=== PATIENT | female | born 1985 | race Caucasian/White ===

== ENCOUNTER 2019-10-01 20:34 | Emergency (ER) | payer SELFPAY ==
[~2019-10-01] VITALS: Ht 167.6 cm; Wt 80.0 kg
[2019-10-01] MEDS ORDERED: IPRATROPIUM BROMIDE (0.02%) 0.5MG/2.5ML NEB HHN STA (20:47)
[2019-10-01] MEDS ORDERED: ALBUTEROL (0.083%) 2.5MG/3ML NEB HHN STA (20:47)
[2019-10-01] MEDS ORDERED: METHYLPREDNISOLONE SOD SUCC 125 MG/2 ML VIAL IV STA (20:47)
[2019-10-01] MEDS ORDERED: MAGNESIUM 2 G PREMIX 50 ML IV ONE (21:00)
[2019-10-01 21:07] LABS: BASOPHILS % 2.1 % (0.0-2.0); EOSINOPHILS % 1.8 % (0.0-5.0); HEMATOCRIT. 34.4 % (36.0-48.0); HEMOGLOBIN. 11.2 g/dL (12.0-16.0); LYMPHOCYTES % 41.2 % (20.0-50.0); MEAN CORPUSCULAR HEMOGLOBIN 28.7 pg (28.0-32.0); MEAN PLATELET VOLUME 7.4 fl (7.4-10.4); MONOCYTES % 14.3 % (2.0-8.0); NEUTROPHILS % 40.6 % (40.0-76.0); PLATELET 286 x1000/uL (130-400); RED BLOOD CELL COUNT 3.91 mill/uL (4.2-5.4); RED CELL DISTRIBUTION WIDTH 17.1 % (11.6-14.6)
[2019-10-01 21:11] LABS: CHLORIDE 107 mEq/L (98-107)
[2019-10-02] MEDS ORDERED: HYDROCODONE/ACETAMINOPHEN 5/325MG TABLET PO PRN (03:30)
[2019-10-02] MEDS ORDERED: ENOXAPARIN 40MG/0.4ML SYR SUBCUT SCH (03:30)
[2019-10-02] MEDS ORDERED: METHYLPREDNISOLONE SOD SUCC 125 MG/2 ML VIAL IV SCH (03:30)
[2019-10-02] MEDS ORDERED: GUAIFENESIN 200MG/10ML SUGAR FREE UDC PO PRN (03:30)
[2019-10-02] MEDS ORDERED: IPRATROPIUM/ALBUTEROL 0.5-3(2.5)MG/3ML NEB NEB PRN (03:30)
[2019-10-02] MEDS ORDERED: LEVOFLOXACIN 500MG PREMIX 100 ML IV SCH (03:30)
[2019-10-02] MEDS ORDERED: MAGNESIUM/ALUMINUM HYDROXIDE/SIMETHICONE 30ML UDC PO PRN (03:30)
[2019-10-02] MEDS ORDERED: ACETAMINOPHEN 325MG TABLET PO PRN (03:30)
[2019-10-02] MEDS ORDERED: CLONIDINE 0.1MG TABLET PO PRN (03:30)
[2019-10-02] MEDS ORDERED: DOCUSATE SODIUM 100MG CAPSULE PO PRN (03:30)
[2019-10-02] MEDS ORDERED: ONDANSETRON HCL 4MG/2ML INJ IV PRN (03:30)
[2019-10-02 05:45] VITALS: BP 114/86
== END 2019-10-02 06:31 | disposition left against medical advice (07) ==
LOC: ER 20:34 → EDBEDREQ 10-02 00:45 → ER 10-02 06:31 → CANRESERV 10-02 07:23 → ENRESERV 10-02 07:23 → CANBEDREQ 10-02 14:11
DX: J45.901 Unspecified asthma with (acute) exacerbation (principal); R06.4 Hyperventilation; F19.10 Other psychoactive substance abuse, uncomplicated; Z88.8 Allergy status to other drugs, medicaments and biological substances
CPT/HCPCS: 36415; 71045; 80053; 83880; 84484; 85025; 93005; 96365; 96366; 96375; 99285; J2930; J3475; Z7610

== ENCOUNTER 2019-10-26 06:47 | Emergency (ER) | payer MEDICAID ==
[~2019-10-26] VITALS: Ht 170.2 cm; Wt 96.0 kg
[2019-10-26] MEDS ORDERED: KETOROLAC 30MG/ML VIAL IV STA (08:33)
[2019-10-26] MEDS ORDERED: LORAZEPAM 2MG/ML CPJ IV ONE (08:45)
[2019-10-26] MEDS ORDERED: ONDANSETRON HCL 4MG/2ML INJ IV ONE (08:45)
[2019-10-26] MEDS ORDERED: FOLIC ACID 1 MG, THIAMINE HCL 100 MG, MVI, ADULT NO.1 10 ML in DEXTROSE 5% WATER 1,000 ML IV ONE ×4 (08:45)
[2019-10-26 08:56] LABS: BASOPHILS % 0.9 % (0.0-2.0); EOSINOPHILS % 1.1 % (0.0-5.0); HEMATOCRIT. 31.8 % (36.0-48.0); HEMOGLOBIN. 10.5 g/dL (12.0-16.0); LYMPHOCYTES % 25.2 % (20.0-50.0); MEAN CORPUSCULAR VOLUME 87.7 fL (81.0-99.0); MEAN PLATELET VOLUME 7.2 fl (7.4-10.4); MONOCYTES % 0.5 % (2.0-8.0); NEUTROPHILS % 72.3 % (40.0-76.0); PLATELET 175 x1000/uL (130-400); RED BLOOD CELL COUNT 3.63 mill/uL (4.2-5.4); RED CELL DISTRIBUTION WIDTH 21.5 % (11.6-14.6)
[2019-10-26 09:01] LABS: CLARITY URINE CLOUDY (CLEAR); COLOR URINE YELLOW (YELLOW); KETONES URINE NEGATIVE (NEGATIVE); LEUKOCYTE ESTERASE URINE 2+ (NEGATIVE); NITRITE URINE POSITIVE (NEGATIVE); OCCULT BLOOD URINE 3+ (NEGATIVE); PH URINE 5.5 (4.5-8.0); PROTEIN URINE 1+ (NEGATIVE); SPECIFIC GRAVITY URINE 1.019 (1.005-1.030)
[2019-10-26 09:03] LABS: CHLORIDE 106 mEq/L (98-107)
[2019-10-26 09:07] LABS: ETHANOL BLOOD 168 mg/dL
[2019-10-26 09:44] LABS: HCG SCREEN NEGATIVE
[2019-10-26] MEDS ORDERED: CEFTRIAXONE 1 G PREMIX 50 ML IV ONE (10:45)
[2019-10-26] MEDS ORDERED: LIDOCAINE HCL 1% 20ML VIAL (Pyxis) INJ INFIL SCH (11:30)
[2019-10-26] MEDS ORDERED: CEFTRIAXONE SODIUM 1 G/VIAL IM SCH (11:30)
[2019-10-26 12:00] VITALS: BP 128/94
== END 2019-10-26 12:20 | disposition home or self-care (01) ==
LOC: ER 06:47
DX: S00.83XA Contusion of other part of head, initial encounter (principal); M79.642 Pain in left hand; F10.239 Alcohol dependence with withdrawal, unspecified; J45.909 Unspecified asthma, uncomplicated; Z88.8 Allergy status to other drugs, medicaments and biological substances; Z91.040 Latex allergy status; Y04.0XXA Assault by unarmed brawl or fight, initial encounter; Y93.89 Activity, other specified; Y92.89 Other specified places as the place of occurrence of the external cause; Y99.8 Other external cause status; Y90.6 Blood alcohol level of 120-199 mg/100 ml
CPT/HCPCS: 36415; 70450; 70486; 72125; 73130; 80048; 80320; 81003; 81025; 84703; 85025; 87077; 87086; 87186; 96365; 96372; 96375; 99285; J0696; J1885; J2060; J2405; J3411; J3490; J7070; G0480